=== PATIENT | female | born 1975 | race Caucasian/White ===

== ENCOUNTER 2020-09-07 10:23 | Emergency (ER) | payer MEDICAID ==
[2020-09-07 10:57] LABS: BASO # 0.15 (0.02-0.10); EOS % 2.3 % (1.0-5.0); HEMATOCRIT 33.1 % (37.0-47.0); HEMOGLOBIN 10.7 g/dL (12.5-16.0); LYMPH# 1.56 (1.50-4.00); MEAN CELL VOLUME 78 fl (78-100); MEAN CORPUSCULAR HEMOGLOBIN 25 pg (27-31); MEAN CORPUSCULAR HGB CONC 32 g/dL (33-37); NEU # 6.25 (1.40-6.50); PLATELET COUNT 335 K/mm3 (130-400); RED BLOOD COUNT 4.23 M/mm3 (4.10-5.30); RED CELL DISTRIBUTION WIDTH 15.9 % (11.5-14.5); WHITE BLOOD COUNT 8.9 K/mm3 (4.8-10.8)
[2020-09-07 11:12] LABS: ALBUMIN 3.4 g/dL (3.5-5.0)
[2020-09-07 11:14] LABS: CALCIUM 8.3 mg/dL (8.3-10.5)
[2020-09-07 11:15] LABS: TOTAL PROTEIN 6.7 g/dL (6.4-8.3)
[2020-09-07 11:17] LABS: TOTAL BILIRUBIN 0.3 mg/dL (0.2-1.2)
[2020-09-07 13:01] LABS: PH-URINE 5.5 (5.0 - 8.0); URINE APPEARANCE HAZY; URINE BILIRUBIN NEGATIVE (NEGATIVE); URINE BLOOD TRACE (NEGATIVE); URINE COLOR YELLOW; URINE GLUCOSE NEGATIVE (NEGATIVE); URINE KETONE NEGATIVE (NEGATIVE); URINE LEUKOCYTE ESTERASE TRACE (NEGATIVE); URINE NITRATE NEGATIVE (NEGATIVE); URINE PROTEIN(semi-quant) 3+ mg/dL (NEGATIVE); URINE UROBILINOGEN NORMAL (NORMAL)
[2020-09-07] MEDS ORDERED: KAPSPARGO SPRIN25 MG PO (14:38)
[2020-09-07] MEDS ORDERED: PANTOPRAZOLE SO40 MG PO ×2 (14:38→19:08)
[2020-09-07] MEDS ORDERED: POTASSIUM CHLO20 ME3 PO (19:07)
[2020-09-07] MEDS ORDERED: SODIUM BIC650 MG/TAB PO (19:07)
[2020-09-07] MEDS ORDERED: LOPRESSOR 225 MG/TAB PO (19:07)
[2020-09-07] MEDS ORDERED: ROXICODONE 55 MG/TAB PO (19:07)
[2020-09-07] MEDS ORDERED: METRONIDAZOLE500 M1 PO (19:07)
[2020-09-07] MEDS ORDERED: ZOFRAN ODT4 MG PO (19:07)
[2020-09-07 19:37] VITALS: BP 102/65
== END 2020-09-07 19:20 | disposition home or self-care (01) ==
LOC: ED 10:23 → EDBD 10:23 → ED 11:10
PROVIDERS: Family Medicine
DX: E27.8 Other specified disorders of adrenal gland (principal); I12.9 Hypertensive chronic kidney disease with stage 1 through stage 4 chronic kidney disease, or unspecified chronic kidney disease; E87.6 Hypokalemia; Z79.899 Other long term (current) drug therapy
CPT/HCPCS: C9113; J2270; J2405; J3480; J7030; Q9967

== ENCOUNTER 2020-09-10 17:31 | Emergency (ER) | payer MEDICAID ==
[~2020-09-10 17:31] MED LIST: KAPSPARGO SPRIN25 MG PO; LOPRESSOR 225 MG/TAB PO; METRONIDAZOLE500 M1 PO; PANTOPRAZOLE SO40 MG PO; POTASSIUM CHLO20 ME3 PO; ROXICODONE 55 MG/TAB PO; SODIUM BIC650 MG/TAB PO; ZOFRAN ODT4 MG PO
[2020-09-10 18:42] LABS: ALBUMIN 2.9 g/dL (3.5-5.0)
[2020-09-10 18:44] LABS: CALCIUM 7.9 mg/dL (8.3-10.5)
[2020-09-10 18:45] LABS: TOTAL PROTEIN 5.4 g/dL (6.4-8.3)
[2020-09-10 18:47] LABS: TOTAL BILIRUBIN 0.2 mg/dL (0.2-1.2)
[2020-09-10 18:50] LABS: BASO # 0.12 (0.02-0.10); EOS # 0.13 (0.04-0.40); EOS % 1.1 % (1.0-5.0); HEMATOCRIT 38.1 % (37.0-47.0); HEMOGLOBIN 11.6 g/dL (12.5-16.0); LYMPH# 1.55 (1.50-4.00); MEAN CELL VOLUME 80 fl (78-100); MEAN CORPUSCULAR HEMOGLOBIN 24 pg (27-31); MEAN CORPUSCULAR HGB CONC 30 g/dL (33-37); MEAN PLATELET VOLUME 8.7 fl (7.4-10.4); MONO # 1.09 (0.20-0.80); NEU # 8.58 (1.40-6.50); PLATELET COUNT 420 K/mm3 (130-400); RED BLOOD COUNT 4.75 M/mm3 (4.10-5.30); RED CELL DISTRIBUTION WIDTH 16.2 % (11.5-14.5); WHITE BLOOD COUNT 11.5 K/mm3 (4.8-10.8)
[2020-09-10 21:32] LABS: URINE COLOR YELLOW
[2020-09-10 21:33] LABS: URINE APPEARANCE HAZY; URINE BILIRUBIN NEGATIVE (NEGATIVE); URINE BLOOD TRACE (NEGATIVE); URINE GLUCOSE NEGATIVE (NEGATIVE); URINE KETONE NEGATIVE (NEGATIVE); URINE LEUKOCYTE ESTERASE TRACE (NEGATIVE); URINE NITRATE NEGATIVE (NEGATIVE); URINE PROTEIN(semi-quant) 3+ mg/dL (NEGATIVE); URINE UROBILINOGEN NORMAL (NORMAL)
[2020-09-10 23:20] VITALS: BP 136/101
== END 2020-09-10 23:20 | disposition short-term general hospital (02) ==
LOC: ED 17:31
PROVIDERS: Physician Assistant
DX: E27.8 Other specified disorders of adrenal gland (principal); R10.9 Unspecified abdominal pain; I13.0 Hypertensive heart and chronic kidney disease with heart failure and stage 1 through stage 4 chronic kidney disease, or unspecified chronic kidney disease; I50.9 Heart failure, unspecified; N18.9 Chronic kidney disease, unspecified; Z90.49 Acquired absence of other specified parts of digestive tract; Z88.8 Allergy status to other drugs, medicaments and biological substances; Z79.899 Other long term (current) drug therapy
CPT/HCPCS: J2270

== ENCOUNTER 2020-09-30 18:53 | Emergency (ER) | payer MEDICAID ==
[2020-09-30 20:17] LABS: BASO # 0.17 (0.02-0.10); EOS # 0.51 (0.04-0.40); EOS % 3.7 % (1.0-5.0); HEMATOCRIT 44.5 % (37.0-47.0); HEMOGLOBIN 14.2 g/dL (12.5-16.0); MEAN CELL VOLUME 77 fl (78-100); MEAN CORPUSCULAR HEMOGLOBIN 25 pg (27-31); MEAN CORPUSCULAR HGB CONC 32 g/dL (33-37); MONO # 0.99 (0.20-0.80); NEU # 8.26 (1.40-6.50); PLATELET COUNT 469 K/mm3 (130-400); RED BLOOD COUNT 5.77 M/mm3 (4.10-5.30); RED CELL DISTRIBUTION WIDTH 19.2 % (11.5-14.5); WHITE BLOOD COUNT 13.8 K/mm3 (4.8-10.8)
[2020-09-30 20:28] LABS: ALBUMIN 4.1 g/dL (3.5-5.0); POTASSIUM 4.7 mmol/L (3.5-5.1)
[2020-09-30 20:29] LABS: CALCIUM 9.2 mg/dL (8.3-10.5)
[2020-09-30 20:33] LABS: TOTAL BILIRUBIN 0.2 mg/dL (0.2-1.2)
[2020-09-30 23:14] VITALS: BP 159/109
== END 2020-09-30 23:14 | disposition short-term general hospital (02) ==
LOC: ED 18:53
PROVIDERS: Nurse Practitioner Family
DX: R21 Rash and other nonspecific skin eruption (principal); N17.9 Acute kidney failure, unspecified; E87.2 Acidosis; I13.0 Hypertensive heart and chronic kidney disease with heart failure and stage 1 through stage 4 chronic kidney disease, or unspecified chronic kidney disease; N18.9 Chronic kidney disease, unspecified; Z20.822 Contact with and (suspected) exposure to COVID-19; Z87.891 Personal history of nicotine dependence; Z79.899 Other long term (current) drug therapy
CPT/HCPCS: J2930

== ENCOUNTER 2020-11-17 05:36 | Emergency (ER) | payer MEDICAID ==
[~2020-11-17] VITALS: Ht 165.1 cm; Wt 77.3 kg
[2020-11-17] MEDS ORDERED: ALDACTONE25 M1 PO (05:48)
[2020-11-17] MEDS ORDERED: LASIX80 M1 PO (05:49)
[2020-11-17 06:47] LABS: BASO # 0.07 (0.02-0.10); HEMATOCRIT 37.8 % (37.0-47.0); HEMOGLOBIN 12.5 g/dL (12.5-16.0); LYMPH# 2.64 (1.50-4.00); MEAN CELL VOLUME 82 fl (78-100); MEAN CORPUSCULAR HEMOGLOBIN 27 pg (27-31); MEAN CORPUSCULAR HGB CONC 33 g/dL (33-37); MEAN PLATELET VOLUME 8.6 fl (7.4-10.4); MONO # 1.05 (0.20-0.80); NEU # 5.95 (1.40-6.50); PLATELET COUNT 291 K/mm3 (130-400); RED BLOOD COUNT 4.64 M/mm3 (4.10-5.30); RED CELL DISTRIBUTION WIDTH 22.2 % (11.5-14.5)
[2020-11-17 06:52] LABS: POTASSIUM 3.9 mmol/L (3.5-5.1)
[2020-11-17 06:53] LABS: CALCIUM 8.5 mg/dL (8.3-10.5)
[2020-11-17 06:54] LABS: ALBUMIN 3.9 g/dL (3.5-5.0)
[2020-11-17 06:55] LABS: TOTAL PROTEIN 7.5 g/dL (6.4-8.3)
[2020-11-17 06:56] LABS: TOTAL BILIRUBIN 0.2 mg/dL (0.2-1.2)
[2020-11-17 07:37] LABS: URINE APPEARANCE CLEAR; URINE BILIRUBIN NEGATIVE (NEGATIVE); URINE BLOOD NEGATIVE (NEGATIVE); URINE COLOR YELLOW; URINE GLUCOSE NEGATIVE (NEGATIVE); URINE KETONE NEGATIVE (NEGATIVE); URINE LEUKOCYTE ESTERASE NEGATIVE (NEGATIVE); URINE NITRATE NEGATIVE (NEGATIVE); URINE PROTEIN(semi-quant) 2+ mg/dL (NEGATIVE); URINE UROBILINOGEN NORMAL (NORMAL)
[2020-11-17 07:38] LABS: URINE MUCUS PRESENT (NOT PRESENT)
[2020-11-17] MEDS ORDERED: OXYCODONE HCL10 M1 PO (10:32)
[2020-11-17 10:45] VITALS: BP 127/99
== END 2020-11-17 10:44 | disposition home or self-care (01) ==
LOC: ED 05:36
PROVIDERS: Family Medicine
DX: R19.09 Other intra-abdominal and pelvic swelling, mass and lump (principal); N17.9 Acute kidney failure, unspecified; I13.0 Hypertensive heart and chronic kidney disease with heart failure and stage 1 through stage 4 chronic kidney disease, or unspecified chronic kidney disease; N18.9 Chronic kidney disease, unspecified; I50.9 Heart failure, unspecified; R53.81 Other malaise; R53.83 Other fatigue; L50.9 Urticaria, unspecified; Z88.8 Allergy status to other drugs, medicaments and biological substances; Z79.899 Other long term (current) drug therapy
CPT/HCPCS: J1170; J2270

== ENCOUNTER 2020-11-23 23:27 | Emergency (ER) | payer MEDICAID ==
[~2020-11-23] VITALS: Ht 167.6 cm; Wt 77.1 kg
[~2020-11-23 23:27] MED LIST changes: +ALDACTONE25 M1 PO; +LASIX80 M1 PO; +OXYCODONE HCL10 M1 PO
[2020-11-24 01:42] LABS: BASO # 0.06 (0.02-0.10); EOS # 0.29 (0.04-0.40); EOS % 2.9 % (1.0-5.0); HEMATOCRIT 35.4 % (37.0-47.0); HEMOGLOBIN 11.9 g/dL (12.5-16.0); LYMPH# 2.09 (1.50-4.00); MEAN CELL VOLUME 81 fl (78-100); MEAN CORPUSCULAR HEMOGLOBIN 27 pg (27-31); MEAN CORPUSCULAR HGB CONC 34 g/dL (33-37); MONO # 0.78 (0.20-0.80); PLATELET COUNT 305 K/mm3 (130-400); RED BLOOD COUNT 4.38 M/mm3 (4.10-5.30); RED CELL DISTRIBUTION WIDTH 22.5 % (11.5-14.5); WHITE BLOOD COUNT 10.2 K/mm3 (4.8-10.8)
[2020-11-24 01:45] LABS: MEAN PLATELET VOLUME 8.5 fl (7.4-10.4)
[2020-11-24 01:53] LABS: URINE COLOR YELLOW
[2020-11-24 01:54] LABS: URINE APPEARANCE HAZY; URINE BILIRUBIN NEGATIVE (NEGATIVE); URINE BLOOD NEGATIVE (NEGATIVE); URINE GLUCOSE NEGATIVE (NEGATIVE); URINE KETONE NEGATIVE (NEGATIVE); URINE LEUKOCYTE ESTERASE NEGATIVE (NEGATIVE); URINE NITRATE NEGATIVE (NEGATIVE); URINE PROTEIN(semi-quant) 2+ mg/dL (NEGATIVE); URINE UROBILINOGEN NORMAL (NORMAL); URINE WBC 0-1 /hpf (0-3)
[2020-11-24 01:57] LABS: POTASSIUM 3.2 mmol/L (3.5-5.1)
[2020-11-24 01:58] LABS: CALCIUM 9.9 mg/dL (8.3-10.5)
[2020-11-24 01:59] LABS: TOTAL PROTEIN 7.9 g/dL (6.4-8.3)
[2020-11-24 02:09] LABS: TOTAL BILIRUBIN 0.1 mg/dL (0.2-1.2)
[2020-11-24] MEDS ORDERED: PERCOCET 325 MG1 TA2 PO (03:54)
[2020-11-24 05:00] VITALS: BP 120/78
== END 2020-11-24 04:31 | disposition home or self-care (01) ==
LOC: ED 23:27
PROVIDERS: Nurse Practitioner Family
DX: E87.6 Hypokalemia (principal); R19.09 Other intra-abdominal and pelvic swelling, mass and lump; I11.0 Hypertensive heart disease with heart failure; I13.0 Hypertensive heart and chronic kidney disease with heart failure and stage 1 through stage 4 chronic kidney disease, or unspecified chronic kidney disease; N18.9 Chronic kidney disease, unspecified; Z91.19 Patient's noncompliance with other medical treatment and regimen
CPT/HCPCS: J2270; J7030

== ENCOUNTER 2020-12-03 19:22 | Emergency (ER) | payer MEDICAID ==
[~2020-12-03 19:22] MED LIST changes: +PERCOCET 325 MG1 TA2 PO
[2020-12-03 20:10] LABS: BASO # 0.07 (0.02-0.10); EOS # 0.19 (0.04-0.40); EOS % 1.6 % (1.0-5.0); HEMOGLOBIN 11.3 g/dL (12.5-16.0); LYMPH# 0.93 (1.50-4.00); MEAN CELL VOLUME 84 fl (78-100); MEAN CORPUSCULAR HEMOGLOBIN 27 pg (27-31); MEAN CORPUSCULAR HGB CONC 32 g/dL (33-37); MEAN PLATELET VOLUME 8.3 fl (7.4-10.4); MONO # 1.01 (0.20-0.80); NEU # 9.29 (1.40-6.50); PLATELET COUNT 324 K/mm3 (130-400); RED BLOOD COUNT 4.16 M/mm3 (4.10-5.30); RED CELL DISTRIBUTION WIDTH 20.9 % (11.5-14.5); WHITE BLOOD COUNT 11.6 K/mm3 (4.8-10.8)
[2020-12-03 20:28] LABS: ALBUMIN 3.5 g/dL (3.5-5.0)
[2020-12-03 20:29] LABS: POTASSIUM 3.4 mmol/L (3.5-5.1)
[2020-12-03 20:30] LABS: CALCIUM 9.6 mg/dL (8.3-10.5)
[2020-12-03 20:31] LABS: TOTAL PROTEIN 7.8 g/dL (6.4-8.3)
[2020-12-03 20:33] LABS: TOTAL BILIRUBIN 0.2 mg/dL (0.2-1.2)
[2020-12-03 20:42] LABS: URINE APPEARANCE HAZY; URINE BILIRUBIN 3+ (NEGATIVE); URINE BLOOD 250 ery/uL (NEGATIVE); URINE COLOR ORANGE; URINE GLUCOSE NEGATIVE (NEGATIVE); URINE KETONE NEGATIVE (NEGATIVE); URINE LEUKOCYTE ESTERASE TRACE (NEGATIVE); URINE NITRATE POSITIVE (NEGATIVE); URINE PROTEIN(semi-quant) 3+ mg/dL (NEGATIVE); URINE UROBILINOGEN 4 mg/dL (NORMAL)
[2020-12-03] MEDS ORDERED: PERCOCET 325 MG1 TA2 PO (21:20)
[2020-12-03] MEDS ORDERED: CEFDINIR300 MG PO (21:20)
[2020-12-03 21:36] VITALS: BP 125/77
== END 2020-12-03 21:36 | disposition home or self-care (01) ==
LOC: ED 19:22
PROVIDERS: Physician Assistant
DX: R19.09 Other intra-abdominal and pelvic swelling, mass and lump (principal); I13.0 Hypertensive heart and chronic kidney disease with heart failure and stage 1 through stage 4 chronic kidney disease, or unspecified chronic kidney disease; N18.9 Chronic kidney disease, unspecified; I50.9 Heart failure, unspecified; E87.6 Hypokalemia; N39.0 Urinary tract infection, site not specified; R79.89 Other specified abnormal findings of blood chemistry; Z88.8 Allergy status to other drugs, medicaments and biological substances; Z79.899 Other long term (current) drug therapy
CPT/HCPCS: J0696; J2270

== ENCOUNTER → 2021-01-06 | Outpatient (CLI) | payer MEDICAID ==
[~2021-01-06] MED LIST changes: +CEFDINIR300 MG PO
== END ==
LOC: LAB 13:53
DX: Z20.822 Contact with and (suspected) exposure to COVID-19 (principal)

== ENCOUNTER → 2021-08-27 | Outpatient (CLI) | payer MEDICAID ==
[2021-08-27 12:05] LABS: ALBUMIN 4.2 g/dL (3.5-5.0); POTASSIUM 3.4 mmol/L (3.5-5.1)
[2021-08-27 12:06] LABS: CALCIUM 9.2 mg/dL (8.3-10.5)
[2021-08-27 12:07] LABS: TOTAL PROTEIN 8.2 g/dL (6.4-8.3)
[2021-08-27 12:09] LABS: TOTAL BILIRUBIN 0.3 mg/dL (0.2-1.2)
== END ==
LOC: LAB 11:17
PROVIDERS: Nurse Practitioner Family
DX: N18.31 Chronic kidney disease, stage 3a (principal); I42.8 Other cardiomyopathies; Z79.899 Other long term (current) drug therapy

== ENCOUNTER → 2021-09-22 | Outpatient (CLI) | payer MEDICAID | LOC: LAB 16:02 → RAD 16:02 | DX: M54.50 Low back pain, unspecified (principal); R10.2 Pelvic and perineal pain ==